=== PATIENT | male | born 1930 | race Caucasian/White ===

== ENCOUNTER 2018-03-07 11:37 | Emergency (ER) | payer MEDICARE, MEDICAID | END 2018-03-07 11:57 | LOC: BURERS 11:37 | DX: S52.502A Unspecified fracture of the lower end of left radius, initial encounter for closed fracture (principal); E78.5 Hyperlipidemia, unspecified; I10 Essential (primary) hypertension; F17.210 Nicotine dependence, cigarettes, uncomplicated; Z79.899 Other long term (current) drug therapy; Z79.82 Long term (current) use of aspirin; W18.30XA Fall on same level, unspecified, initial encounter | CPT/HCPCS: 99284 ==